=== PATIENT | male | born 1960 | race Caucasian/White ===

== ENCOUNTER 2019-03-29 23:30 | Emergency (ER) | payer BC ==
[2019-03-29 23:50] VITALS: RESP 17
[2019-03-29] MEDS ORDERED: KETOROLAC 60 MG/2 ML VIAL IM STA (23:58)
--- NOTE | 2019-03-30 00:48 | XR ---
EXAM: XR Right Humerus, 2 or More Views CLINICAL HISTORY: ITS.REASON XR Reason: Pain TECHNIQUE: Frontal and lateral views of the right humerus. COMPARISON: No relevant prior studies available. FINDINGS: Bones/joints: No acute fracture. No dislocation. Soft tissues: Unremarkable. IMPRESSION: No acute findings.
--- NOTE | 2019-03-30 00:52 | ED ---
General Adult HPI - General Chief complaint: Fall Stated complaint: Fall, Back Pain Time Seen by Provider: 03/29/19 23:50 Source: patient, RN notes reviewed, old records reviewed Mode of arrival: ambulatory Limitations: no limitations - History of Present Illness Initial comments: 58-year-old male patient comes to ED for chief complaint of fall and back pain. He reports that he was pulling a tarp folds and, when it slipped, fell backward. 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 Patient currently has pain in his right paralumbar back as well as his right shoulder region. Patient denies any trauma to head or neck. Denies any loss of consciousness, denies any other complaints. Systemic: Pt denies fatigue, fever/chills, rash. Pt denies weakness, night sweats, weight loss. Neuro: Pt denies headache, visual disturbances, syncope or pre-syncope. HEENT: Pt denies ocular discharge or irritation, otalgia, rhinorrhea, pharyngitis or notable lymphadenopathy. Cardiopulmonary: Pt denies chest pain, SOB, heart palpitations, dyspnea on exertion. Abdominal/GI: Pt denies abdominal pain, n/v/d. : Pt denies dysuria, burning w/ urination, frequency/urgency. Denies new onset urinary or bowel incontinence. MSK: Pt denies myalgia, loss of strength or function in extremities. Neuro: Pt denies new onset weakness, paresthesias. - Related Data Allergies Allergy/AdvReac Type Severity Reaction Status Date / Time No Known Allergies Allergy Verified 03/29/19 23:49 Review of Systems ROS Statement: Those systems with pertinent positive or pertinent negative responses have been documented in the HPI. ROS Other: All systems not noted in ROS Statement are negative. Past Medical History Past Medical History: No Reported History History of Any Multi-Drug Resistant Organisms: None Reported Additional Past Surgical History / Comment(s): right great toe traumatic amputation in 1979. Past Psychological History: No Psychological Hx Reported Smoking Status: Current some day smoker Past Alcohol Use History: Rare Past Drug Use History: Marijuana General Exam - General Exam Comments Initial Comments: Constitutional: NAD, AOX3, Pt has pleasant affect. HEENT: NC/AT, trachea midline, neck supple, no lymphadenopathy. Posterior pharynx non erythematous, without exudates. External ears appear normal, without discharge. Mucous membranes moist. Eyes PERRLA, EOM intact. There is no scleral icterus. No pallor noted. Cardiopulmonary: RRR, no murmurs, rubs or gallops, no JVD noted. Lungs CTAB in anterior and posterior barragan. No peripheral edema. Abdominal exam: Abdomen soft and non-distended. Abdomen non-tender to palpation in all 4 quadrants. Bowel sounds active in LLQ. No hepatosplenomegaly. No ecchymosis Neuro: CN II-XII grossly intact. No nuchal rigidity. No raccon eyes, no barr sign, no hemotympanum. No cervical spinal tenderness. MSK: Mild abrasion noted to right paralumbar back region. Right paralumbar back region mildly tender to palpation. No midline cervical thoracic lumbar tenderness. Straight-leg raise negative. Right shoulder nontender to palpation, no ecchymoses, pain with range of motion. Active range of motion limited, passive range of motion intact. No posterior calf tenderness bilaterally, homans sign negative bilaterally. Posterior tibialis and radial pulse +2 bilaterally. Sensation intact in upper and lower extremities. Limitations: no limitations Course Vital Signs 03/29/19 23:45 Temperature 98.4 F Pulse Rate 84 Respiratory 17 Rate Blood Pressure 153/88 O2 Sat by Pulse 96 Oximetry Medical Decision Making - Medical Decision Making 58-year-old male patient comes to ED for chief complaint of fall and back pain. He reports that he was pulling a tarp folds and, when it slipped, fell backward. 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 Patient currently has pain in his right paralumbar back as well as his right shoulder region. Patient denies any trauma to head or neck. Denies any loss of consciousness, denies any other complaints. Patient vital signs stable, afebrile. Physical exam displayed: Mild abrasion noted to right paralumbar back region. Right paralumbar back region mildly tender to palpation. No midline cervical thoracic lumbar tenderness. Straight-leg raise negative. Right shoulder nontender to palpation, no ecchymoses, pain with range of motion. Active range of motion limited, passive range of motion intact. No posterior calf tenderness bilaterally, homans sign negative bilaterally. Posterior tibialis and radial pulse +2 bilaterally. Sensation intact in upper and lower extremities. Plain film of shoulder, lumbar spine, he was sent display acute process. Patient will discharge, follow-up with private care provider, will return to ER if condition worsens. Orthopedic consult symptoms persist. Case discussed with Dr. Jeffery. Disposition Clinical Impression: Fall Disposition: HOME SELF-CARE Condition: Stable Instructions (If sedation given, give patient instructions): Fall Prevention (ED) Additional Instructions: Patient to adhere to previously discussed treatment plan and will take medication(s) as directed. Patient to follow up with PCP in 1-2 days. Patient to return to ED if symptoms do not improve. Follow up with primary care provider tomorrow. Return to ER if condition worsens. Is patient prescribed a controlled substance at d/c from ED?: No Referrals: None,Stated [Primary Care Provider] - 1-2 days Julio C Candelaria DO [Doctor of Osteopathic Medicine] - 1-2 days
--- NOTE | 2019-03-30 00:57 | XR ---
EXAM: XR Right Shoulder Complete, 2 or More Views CLINICAL HISTORY: ITS.REASON XR Reason: Pain TECHNIQUE: Two or more views of the right shoulder. COMPARISON: No relevant prior studies available. FINDINGS: Bones/joints: No acute fracture. No dislocation. Soft tissues: Unremarkable. IMPRESSION: No acute findings.
--- NOTE | 2019-03-30 00:59 | XR ---
EXAM: XR Lumbar Spine, 2 or 3 Views CLINICAL HISTORY: ITS.REASON XR Reason: Pain TECHNIQUE: Frontal and lateral views of the lumbar spine. COMPARISON: No relevant prior studies available. FINDINGS: Vertebrae: 1 mm retrolisthesis of L3 on L4, L4 on L5, and anterolisthesis of L5 on S1.. No acute fracture. Disc spaces: No significant narrowing. Soft tissues: Mild aortic atherosclerosis. IMPRESSION: No acute findings. Mild degenerative changes.
[2019-03-30 02:21] VITALS: BP 126/88; PULSE 60; TEMP 97.8
== END 2019-03-30 02:20 | disposition home or self-care (01) ==
LOC: EC 23:30
DX: M54.5 Low back pain (principal); M25.511 Pain in right shoulder; F17.200 Nicotine dependence, unspecified, uncomplicated; Z89.411 Acquired absence of right great toe; W01.198A Fall on same level from slipping, tripping and stumbling with subsequent striking against other object, initial encounter
CPT/HCPCS: 72100; 73030; 73060; 99284; 96372; J1885

== ENCOUNTER 2021-08-30 20:56 | Emergency (ER) | payer BC ==
--- NOTE | 2021-08-30 22:08 | ED ---
Eye Problem HPI - General Chief complaint: Eye Problems Stated complaint: Post Op R Vision Loss Time Seen by Provider: 08/30/21 21:39 Source: patient, RN notes reviewed, old records reviewed Mode of arrival: ambulatory Limitations: no limitations - History of Present Illness Initial comments: This is a 60-year-old male who was about 2 weeks out from ophthalmology procedure. States his wage and hour investigator has coronavirus and cannot see him. States that he has worsening vision changes in his right eye this is the eye that he had a retinal detachment and surgery on. Patient states the vision continues to get worse and has been throughout the day. Patient is without pain MD chief complaint: eye redness, vision change -: hour(s) Onset Description: gradual Location: right eye Place: home If Injury: none Eye Symptoms: decreased vision, blurry vision Severity: severe Severity scale (1-10): 8 Consistency: constant Context: recent eye procedure Associated Symptoms: none Treatments Prior to Arrival: none - Related Data Allergies Allergy/AdvReac Type Severity Reaction Status Date / Time No Known Allergies Allergy Verified 03/29/19 23:49 Review of Systems ROS Statement: Those systems with pertinent positive or pertinent negative responses have been documented in the HPI. ROS Other: All systems not noted in ROS Statement are negative. Past Medical History Past Medical History: No Reported History History of Any Multi-Drug Resistant Organisms: None Reported Past Surgical History: Orthopedic Surgery Additional Past Surgical History / Comment(s): right great toe traumatic amputation in 1979. Past Psychological History: No Psychological Hx Reported Smoking Status: Current every day smoker Past Alcohol Use History: Rare Past Drug Use History: None Reported, Marijuana General Exam Limitations: no limitations General appearance: alert, in no apparent distress Head exam: Present: atraumatic, normocephalic, normal inspection Eye exam: Present: normal appearance, PERRL, EOMI. Absent: scleral icterus, conjunctival injection, periorbital swelling ENT exam: Present: normal exam, mucous membranes moist Neck exam: Present: normal inspection. Absent: tenderness, meningismus, lymphadenopathy Respiratory exam: Present: normal lung sounds bilaterally. Absent: respiratory distress, wheezes, rales, rhonchi, stridor Cardiovascular Exam: Present: regular rate, normal rhythm, normal heart sounds. Absent: systolic murmur, diastolic murmur, rubs, gallop, clicks GI/Abdominal exam: Present: soft, normal bowel sounds. Absent: distended, tenderness, guarding, rebound, rigid Extremities exam: Present: normal inspection, full ROM, normal capillary refill. Absent: tenderness, pedal edema, joint swelling, calf tenderness Back exam: Present: normal inspection Neurological exam: Present: alert, oriented X3, CN II-XII intact Psychiatric exam: Present: normal affect, normal mood Skin exam: Present: warm, dry, intact, normal color. Absent: rash Course Vital Signs 08/30/21 08/30/21 21:27 23:04 Temperature 99.1 F 97.7 F Pulse Rate 88 79 Respiratory 20 22 Rate Blood Pressure 149/81 139/79 O2 Sat by Pulse 97 97 Oximetry - Reevaluation(s) Reevaluation #1: 09/01/21 Medical record is reviewed Patient informed of results Patient understands discharge home sitting up straight sleeping tonight - Consultations Consultation #1: Spoke with Dr. Ring patient's wage and hour investigator. No currently and will have follow-up in the morning with outpatient wage and hour investigator Medical Decision Making - Medical Decision Making 60 male to the emergency department for evaluation of vision changes. Patient recently had a procedure for retinal detachment. Patient having significant worsening vision of right eye since procedures been about 2 weeks. Can only see colors not objects. Patient's visual acuity here in the ER is untestable Disposition Clinical Impression: Right retinal detachment, Blurry vision, right eye Disposition: HOME SELF-CARE Condition: Fair Instructions (If sedation given, give patient instructions): Surgery for Retinal Detachment (DC) Is patient prescribed a controlled substance at d/c from ED?: No Referrals: Adiel Ring MD [STAFF PHYSICIAN] - 1-2 days
[2021-08-30 23:04] VITALS: BP 139/79; PULSE 79; RESP 22; TEMP 97.7
== END 2021-08-30 23:04 | disposition home or self-care (01) ==
LOC: EC 20:56
DX: H53.8 Other visual disturbances (principal); H33.21 Serous retinal detachment, right eye; F17.200 Nicotine dependence, unspecified, uncomplicated
CPT/HCPCS: 99283

== ENCOUNTER 2021-11-08 07:53 | Day surgery (SDC) | payer BC ==
[2021-11-06 14:27] VITALS: BMI 24.7
[~2021-11-08 07:53] MED LIST: TETRACAINE 0.5% OPHTH (PF) DROPS 4 ML BTL OP PRN
[2021-11-08] MEDS ORDERED: LACTATED RINGERS 1,000 ML IV SCH (07:54)
[2021-11-08] MEDS ORDERED: LIDOCAINE 1% (10MG/ML) FOR IV START INTRADERMA PRN (07:54)
[2021-11-08] MEDS: CYCLOPENTOLATE 1% OPHTH SOLN 2 ML BTL OP PRN ×3 (09:18→09:30)
[2021-11-08] MEDS: PHENYLEPHRINE 2.5% OPHTH DRP 2ML OP PRN ×3 (09:21→09:33)
[2021-11-08 09:30] VITALS: RESP 16; TEMP 97.6
[2021-11-08] MEDS ORDERED: fentaNYL (PF) 50 MCG/ML 2 ML AMP ONE (09:44)
[2021-11-08] MEDS ORDERED: MIDAZOLAM 2 MG/2 ML VIAL ONE (09:44)
[2021-11-08] MEDS ORDERED: BALANCED SALT IRRIG SOLN COMB2 15 ML IRRIG.SOLN INTRAOCULA ONE ×2 (09:47→10:05)
[2021-11-08] MEDS ORDERED: HYALURONATE SODIUM INTRAOCULAR 1 EACH SYRINGE (12MG/ML) INTRAOCULA ONE ×2 (09:47→10:05)
[2021-11-08] MEDS ORDERED: LIDOCAINE 1% (PF) 10MG/ML VIAL MISCELLANE ONE ×2 (09:48→10:05)
[2021-11-08] MEDS: MOXIFLOXACIN HCL 0.5% DROPS 3 ML BTL OP PRN ×2 (09:48→10:05)
[2021-11-08] MEDS: TIMOLOL 0.5% OPHTH DROPS 5 ML BTL OP PRN ×2 (09:49→10:05)
[2021-11-08] MEDS ORDERED: EPINEPHrine (PF) 0.3 ML in BALANCED SALT IRRIG SOLN COMB2 500 ML IRRIGATION ONE (09:49)
--- NOTE | 2021-11-08 10:29 | P.OP ---
Date of Procedure: 11/08/21 Preoperative Diagnosis: NS & CS 7 PSC Postoperative Diagnosis: same Procedure(s) Performed: PIOL, OD Implants: [id number] 23.50 Anesthesia: MAC Surgeon: Adiel Ring Pathology: none sent Condition: stable Disposition: same day Indications for Procedure: blurry vision Operative Findings: no complications
[2021-11-08 10:39] VITALS: BP 126/75; PULSE 67
--- NOTE | 2021-11-09 12:34 | OP ---
OPERATIVE REPORT DATE OF SERVICE: November 08, 2021. PROCEDURES: Phacoemulsification of cataract and intraocular lens implant of the right eye. SURGEON: Dr. Adiel Ring. PREOPERATIVE DIAGNOSES: Nuclear sclerosis. Cortical sclerosis. Posterior subcapsular cataract. POSTOPERATIVE DIAGNOSES: Nuclear sclerosis. Cortical sclerosis. Posterior subcapsular cataract. OPERATION: Clear cornea phacoemulsification of cataract right OD eye. ESTIMATED BLOOD LOSS: Zero. SPECIMEN TAKEN: None. NARRATIVE: After obtaining the appropriate consent, the patient was brought to the Operating Room where the patient was placed under cardiac monitoring and prepped and draped in the usual sterile manner. At the 11 o'clock - position a 15 degree super sharp blade was used to create a paracentesis followed by instillation of 1% Xylocaine MPF 50:50 mix with BSS into the anterior chamber. This was followed by Amvisc to stabilize the anterior chamber. At the 9 o'clock position a self-sealing corneal flap incision was created using 2.8 mm eloisa keratome. A cystotome was used to initiate a continuous tear capsulorrhexis which was completed with the Utrata forceps. A Binkhorst cannula was used to hydrodissect the lens nucleus followed by hydrodelineation. Phacoemulsification of the lens was performed utilizing phacochop in 30.48 seconds at 27.7% power. The remaining cortical material was removed using the irrigation aspiration mode followed by additional 1% Xylocaine MPF into the anterior chamber followed by viscoelastic to stabilize the capsular bag. A [employer] MX60E 23.5 diopter posterior chamber lens was placed into the capsular bag without difficulty. The remaining viscoelastic material was removed from the anterior chamber with the irrigation/aspiration. Balanced salt solution was used to normalize the intraocular pressure. The incision was checked for watertight integrity. The patient then received two drops of 0.5% timolol followed by two drops Vigamox, was lightly patched and shielded in the usual manner. There were no complications from the procedure. The patient tolerated the procedure well and was returned to recovery in good condition. MMODL / IJN: [id number] /
== END 2021-11-08 11:03 | disposition home or self-care (01) ==
LOC: OR 07:53
PROVIDERS: ATTEND Ophthalmology
DX: H25.11 Age-related nuclear cataract, right eye (principal); F17.210 Nicotine dependence, cigarettes, uncomplicated
CPT/HCPCS: 66984; C1780; J2250; J0171; J3010; J2001